=== PATIENT | male | born 1960 | race Caucasian/White ===

== ENCOUNTER 2016-06-09 08:50 | Emergency (ER) | payer OTHER | END 2016-06-09 09:07 | disposition home or self-care (01) | LOC: CED 08:50 | DX: R22.41 Localized swelling, mass and lump, right lower limb (principal); Z53.21 Procedure and treatment not carried out due to patient leaving prior to being seen by health care provider ==

== ENCOUNTER 2016-06-09 09:25 | Emergency (ER) | payer OTHER ==
--- NOTE | 2016-06-09 10:06 | EDPHY ---
H & P Smoking Status: Never smoked Time Seen by Provider: 06/09/16 09:48 HPI/ROS: CHIEF COMPLAINT: Right upper thigh and groin pain HISTORY OF PRESENT ILLNESS: 56-year-old male presents to the emergency department by private vehicle with right upper thigh and groin pain since Friday evening, 2 days ago. The patient denies any known trauma or injury. He states on Friday evening he developed what he described as a cramp in the right upper thigh area. He denies any known trauma or injury. He is very active and denies any kind of injury. He has not noticed this with activity. He did try taking some ibuprofen with some relief. He was concerned about possible blood clot. Feels that the pain that started in his right proximal medial thigh is now radiating down into his right mid thigh. He denies rash. Denies pleuritic chest pain. Denies shortness of breath. Denies calf pain or swelling. Denies recent travel. REVIEW OF SYSTEMS: Constitutional: No fever, no chills. Eyes: No double or blurry vision. ENT: No sore throat. Respiratory: No cough, no shortness of breath. Cardiac: No chest pain. Gastrointestinal: No abdominal pain, vomiting or diarrhea. Genitourinary: No dysuria. Musculoskeletal: No neck or back pain. Skin: No rashes. Neurological: No headache. (Shabnam Pearson) Past Medical/Surgical History: Negative (Shabnam Pearson) Social History: Single (Shabnam Pearson) Physical Exam: General Appearance: Alert, no distress. 96% on room air Eyes: Pupils equal and round. Extraocular motions are all intact. ENT: Mouth: Mucous membranes moist. Respiratory: No wheezing, rhonchi, or rales, lungs are clear to auscultation. Cardiovascular: Regular rate and rhythm. Gastrointestinal: Abdomen is soft and nontender, no masses, no rebound or guarding, bowel sounds normal. Neurological: Alert and oriented x 3, cranial nerves II through XII grossly intact Skin: Warm and dry, no rashes. Musculoskeletal: Nontender to palpate along the cervical, thoracic or lumbar spine. Neck is supple. Extremities: Full range of motion and no peripheral edema. Tender with palpation to the right proximal medial aspect of the right upper thigh. No palpable bony tenderness. No inguinal lymphadenopathy palpated. Full range of motion of the right lower extremity without any pain or difficulty. Flexion and abduction and abduction all against resistance without any difficulty or pain. Psychiatric: Patient is oriented X 3, there is no agitation. (Shabnam Pearson) Constitutional: Initial Vital Signs Temperature (C) 36.7 C 06/09/16 09:35 Heart Rate 80 06/09/16 09:35 Respiratory Rate 16 06/09/16 09:35 Blood Pressure 160/89 H 06/09/16 09:35 O2 Sat (%) 96 06/09/16 09:35 O2 Delivery Mode Room Air Allergies/Adverse Reactions: No Known Allergies Allergy (Verified 12/01/15 19:44) Home Medications: Medication Instructions Recorded Atorvastatin Calcium 10/11/14 Aspirin 06/09/16 Medical Decision Making - Diagnostics Imaging: Ultrasound the right lower extremity reveals no evidence of DVT. This is reported to me by Dr. Flaquito العلي. (Shabnam Pearson) ED Course/Re-evaluation: 56-year-old male presents with right groin and proximal thigh pain. There is no palpable lymphadenopathy. The patient is concerned about possible DVT. Ultrasound has been ordered and is pending. Ultrasound the right lower extremity reveals no evidence of DVT. Patient was reassured. I do not see any evidence of necrotizing fasciitis. He has no rash or any redness or warmth to suggest cellulitis. I encouraged close follow-up with primary care provider. I also encouraged him to return to the emergency department if he developed chest pain, difficulty breathing, swelling in his thigh or if he felt worse in any way. Patient was comfortable with this plan. (Shabnam Pearson) I did not see this patient while he was in the emergency department. However his care was discussed with the PA while the patient was in the department. I agree with treatment plan and management (Dejan Kirby) Differential Diagnosis: Including but not limited to DVT, musculoskeletal pain, necrotizing fasciitis, cellulitis, lymphadenopathy (Shabnam Pearson) Departure - Departure Disposition: Home, Routine, Self-Care Clinical Impression: Right thigh pain Condition: Good Instructions: Musculoskeletal Pain (ED) Additional Instructions: Ibuprofen 600mg every 8 hours for pain as directed. Return if you developed swelling in your groin, increasing pain, or if you feel worse in any way. Referrals: Nate Holley MD [Primary Care Provider] - 2-3 days, call for appt.
[2016-06-09 12:00] VITALS: BP 138/78; PULSE 70; RESP 14; TEMP 98.4; O2SAT 94
== END 2016-06-09 11:58 | disposition home or self-care (01) ==
DX: M79.651 Pain in right thigh (principal); Z79.82 Long term (current) use of aspirin

== ENCOUNTER → 2016-06-13 | Outpatient (CLI) | payer OTHER | LOC: CIMAGING 08:30 | PROVIDERS: ATTEND Internal Medicine Interventional Cardiology | DX: M54.2 Cervicalgia (principal); I25.10 Atherosclerotic heart disease of native coronary artery without angina pectoris | CPT/HCPCS: 93880-PO ==

== ENCOUNTER → 2016-08-22 | Outpatient (CLI) | payer OTHER ==
[~2016-08-22] MED LIST: IOPAMIDOL (ISOVUE-300) 100 ML BTL IV ONE
== END ==
LOC: CIMAGING 08:16
PROVIDERS: ATTEND Physician Assistant
DX: R10.31 Right lower quadrant pain (principal); N28.1 Cyst of kidney, acquired
CPT/HCPCS: 74177-PO; Q9967

== ENCOUNTER 2016-10-26 09:38 | Emergency (ER) | payer OTHER ==
[2016-10-26 10:04] VITALS: O2SAT 96
[2016-10-26] MEDS ORDERED: TDAP ADULT 0.5 ML INJ (BOOSTRIX) IM ONE (10:08)
[2016-10-26] MEDS ORDERED: LET GEL TOPICAL 1 EA SYR TP ONE (10:41)
--- NOTE | 2016-10-26 11:46 | EDPHY ---
H & P Time Seen by Provider: 10/26/16 10:35 HPI/ROS: This patient sustained a laceration to his right thumb from a chainsaw shortly prior to arrival. He was working with his father with swelling that she has sella the patient thought that the so but it is up spinning but still slightly motion when it bumped up against his thumb. He reports minimal discomfort and mild bleeding that stopped with direct pressure prior to arrival. He denies any other injuries or complaints. ROS: Neuro: No numbness or tingling. Musculoskeletal: No difficulty moving the affected thumb. No other injuries. 5 point ROS is otherwise negative Past Medical/Surgical History: Dyslipidemia. Otherwise healthy Last tetanus was more than 7 years ago he believes. Smoking Status: Never smoked Physical Exam: Physical Exam Vital signs are normal. General: No acute distress Eyes: Pupils equal and react to light. Extraocular motions are intact. Lungs: No respiratory distress. Cardiac: Brisk capillary refill is intact throughout. Skin: No rash or pallor. The patient has a 1 cm flap-type laceration with no active bleeding the dorsum of his right thumb. Subcutaneous tissues evident but no deeper structures are injured. He is neurovascularly intact beyond the wound. No bony tenderness. No foreign bodies. The base of the wound is easily visualized. Neuro: Alert and oriented x3 with no sensorimotor deficits in the affected extremity. Constitutional: Initial Vital Signs Temperature (C) 37.0 C 10/26/16 10:01 Heart Rate 96 10/26/16 10:01 Respiratory Rate 18 10/26/16 10:01 Blood Pressure 125/79 H 10/26/16 10:01 O2 Sat (%) 96 10/26/16 10:01 O2 Delivery Mode Room Air Allergies/Adverse Reactions: No Known Allergies Allergy (Verified 10/26/16 10:01) Home Medications: Medication Instructions Recorded Atorvastatin Calcium 10/11/14 Aspirin 06/09/16 MDM/Departure - MDM Procedures: The wound is 1 cm in length. The wound was copiously irrigated with saline. The wound was explored for foreign bodies and none were found. The wound was prepped and draped in the normal sterile fashion. The wound was anesthetized using let solution The edges were reapproximated using 3 interrupted sutures with 4 0 Ethilon with good hemostasis and cosmesis. The patient tolerated the procedure well. There were no complications. A dressing is placed. I counseled patient regarding wound care Medications Given: Discontinued Medications Diphtheria/Tetanus/Acell Pertussis (Boostrix) 0.5 ml IM .ONCE ONE Stop: 10/26/16 10:09 Last Admin: 10/26/16 10:20 Dose: 0.5 ml Tetracaine/Epinephrine/Lidocaine (Let Gel Topical) 1 ea TP EDNOW ONE Stop: 10/26/16 10:42 Last Admin: 10/26/16 10:52 Dose: 1 ea ED Course/Re-evaluation: Tennis immunizations given. Discussion: Minor thumb laceration without evidence of tendon injury, neurovascular compromise or bony injury. - Depart Disposition: Home, Routine, Self-Care Clinical Impression: Laceration of thumb Qualifiers: Encounter type: initial encounter Damage to nail status: without damage Foreign body presence: without foreign body Laterality: right Qualified Code(s) : S61.011A - Laceration without foreign body of right thumb without damage to nail, initial encounter Condition: Good Instructions: Finger Laceration (ED) Additional Instructions: Diagnosis: Thumb laceration Plan: Keep the wound clean and dry for the next 2 days, then clean daily with warm soapy water Return for suture removal in 10-12 days Return sooner if he develops redness, discharge or other concerns for infection. Referrals: Nate Holley MD [Primary Care Provider] - As per Instructions
[2016-10-26 12:01] VITALS: BP 112/79; PULSE 54; RESP 16; TEMP 98.7
== END 2016-10-26 12:01 | disposition home or self-care (01) ==
LOC: CED 09:38
PROC: 0HQFXZZ Repair Right Hand Skin, External Approach (ICD-10-PCS; principal; 2016-10-26)
PROC: 3E0234Z Introduction of Serum, Toxoid and Vaccine into Muscle, Percutaneous Approach (ICD-10-PCS; principal; 2016-10-26)
DX: S61.011A Laceration without foreign body of right thumb without damage to nail, initial encounter (principal); Z23 Encounter for immunization; Z79.82 Long term (current) use of aspirin; W29.3XXA Contact with powered garden and outdoor hand tools and machinery, initial encounter; Y92.69 Other specified industrial and construction area as the place of occurrence of the external cause

== ENCOUNTER → 2016-12-24 | Outpatient (CLI) | payer OTHER | LOC: CIMAGING 08:43 | PROVIDERS: ATTEND Internal Medicine | DX: N50.82 Scrotal pain (principal) | CPT/HCPCS: 76870-PO ==

== ENCOUNTER → 2017-03-18 | Outpatient (CLI) | payer OTHER | LOC: FIMAGING 08:13 | PROVIDERS: ATTEND Physician Assistant Medical | DX: R13.10 Dysphagia, unspecified (principal); M50.30 Other cervical disc degeneration, unspecified cervical region ==

== ENCOUNTER 2017-06-10 18:25 | Emergency (ER) | payer OTHER ==
--- NOTE | 2017-06-10 18:36 | CPEKG ---
Heart Rate: 61 RR Interval: 984 P-R Interval: 172 QRSD Interval: 98 QT Interval: 428 QTC Interval: 431 P [place]: 58 QRS [place]: 78 T Wave [place]: 34 EKG Severity - NORMAL ECG - EKG Impression: SINUS RHYTHM Electronically Signed By: Malcolm Bingham 10-Jun-2017 19:15:42
[2017-06-10] MEDS ORDERED: ASPIRIN 81 MG CHEWABLE TAB PO ONE (19:07)
--- NOTE | 2017-06-10 19:10 | EDPHY ---
H & P Stated Complaint: Chest Pain Source: Patient Exam Limitations: No limitations - Personal History Tetanus Vaccine Date: WITHIN 10 YRS - Medical/Surgical History Hx Asthma: No Hx Chronic Respiratory Disease: No Hx Diabetes: No Hx Cardiac Disease: No Hx Renal Disease: No Hx Cirrhosis: No Hx Alcoholism: No Hx HIV/AIDS: No Hx Splenectomy or Spleen Trauma: No Other PMH: SURGICAL- ORTHO, HYPERLIPIDEMIA - Family History Significant Family History: No pertinent family hx - Social History Smoking Status: Never smoked Alcohol Use: Sober Drug Use: None Time Seen by Provider: 06/10/17 18:42 HPI/ROS: CHIEF COMPLAINT: Chest pain HISTORY OF PRESENT ILLNESS: 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 He states that he has chronic neck pain and at 1st attributed it to that but states that it seems to be radiating down into his mid chest. It is not worsened by exertion. He has not had any nausea vomiting or diaphoresis. No radiation into his arms or back. He does occasionally notice shortness of breath but it resolved after a few seconds. He thinks that it may be from anxiety. He has not had any recent illness. No lightheadedness or dizziness. No palpitations. He does have a history of GERD and thought that that may be the cause but was unsure. His pain is not made worse by palpation or movement. He is currently symptom free. REVIEW OF SYSTEMS: Constitutional: denies: chills, fever, recent illness, recent injury EENTM: denies: blurred vision, double vision, nose congestion Respiratory: See HPI denies: cough Cardiac: See HPI denies: irregular heart rate, lightheadedness, palpitations Gastrointestinal/Abdominal: denies: abdominal pain, diarrhea, nausea, vomiting, blood streaked stools Genitourinary: denies: dysuria, frequency, hematuria, pain Musculoskeletal: denies: joint pain, muscle pain Skin: denies: lesions, rash, jaundice, bruising Neurological: denies: headache, numbness, paresthesia, tingling, dizziness, weakness Hematologic/Lymphatic: denies: blood clots, easy bleeding, easy bruising Immunologic/allergic: denies: HIV/AIDS, transplant EXAM: GENERAL: Well-appearing, well-nourished and in no acute distress. HEAD: Atraumatic, normocephalic. EYES: Pupils equal round and reactive to light, extraocular movements intact, sclera anicteric, conjunctiva are normal. ENT: TMs normal, nares patent, oropharynx clear without exudates. Moist mucous membranes. NECK: Normal range of motion, supple without lymphadenopathy or JVD. LUNGS: Breath sounds clear to auscultation bilaterally and equal. No wheezes rales or rhonchi. HEART: Regular rate and rhythm without murmurs, rubs or gallops. ABDOMEN: Soft, nontender, normoactive bowel sounds. No guarding, no rebound. No masses appreciated. BACK: No CVA tenderness, no spinal tenderness, step-offs or deformities EXTREMITIES: Normal range of motion, no pitting or edema. No clubbing or cyanosis. NEUROLOGICAL: Cranial nerves II through XII grossly intact. Normal speech, normal gait. 5/5 strength, normal movement in all extremities, normal sensation PSYCH: Normal mood, normal affect. SKIN: Warm, dry, normal turgor, no visible rashes or lesions. (Malcolm Bingham) Constitutional: Initial Vital Signs Temperature (C) 36.9 C 06/10/17 18:41 Heart Rate 67 06/10/17 18:41 Respiratory Rate 16 06/10/17 18:41 Blood Pressure 139/79 H 06/10/17 18:41 O2 Sat (%) 97 06/10/17 18:41 O2 Delivery Mode Room Air Allergies/Adverse Reactions: No Known Allergies Allergy (Verified 10/26/16 10:01) Home Medications: Medication Instructions Recorded Atorvastatin Calcium 10/11/14 Aspirin 06/09/16 Medical Decision Making - Diagnostics Imaging: Discussed imaging studies w/ housecalls nurse Radiologist - Diagnostics EKG Interpretation: An EKG obtained and was read and documented in trace view. Please see trace view for full reading and report. Sinus rhythm, no acute ischemic changes ( Malcolm Bingham) ED Course/Re-evaluation: Patient seen by me at 9:40 p.m.. He has no symptoms. We both agree that we will repeat a troponin at 10:30 p.m.. Repeat troponin has been drawn and sent. Patient and I reviewed his labs together and I had noted that the patient had an elevated lipase. The patient and Dr. Bingham had discussed this and the patient had had a CT of his abdomen without evidence for pancreatic cancer or tumor. Patient and I discussed follow -up on this with Dr. Holley (Dejan Kirby) 8:45 p.m. we discussed the lab and imaging results. The patient is reassured. We discussed options. We elected to do a repeat troponin at 10:30 a.m.. I will transfer care to Dr. Dejan Kirby. (Malcolm Bingham) Differential Diagnosis: Partial list of the Differential diagnosis considered include but were not limited to; acute coronary disease, GERD, PE, angina and although unlikely based on the history and physical exam, I also considered anxiety, pneumothorax , pneumonia. (Malcolm Bingham) - Data Points Laboratory Results: Laboratory Results 06/10/17 18:37 06/10/17 18:37 Medications Given: Discontinued Medications Aspirin (Aspirin) 324 mg PO EDNOW ONE Stop: 06/10/17 19:08 Last Admin: 06/10/17 19:26 Dose: 324 mg Departure - Departure Disposition: Home, Routine, Self-Care Clinical Impression: Chest pain Qualifiers: Chest pain type: unspecified Qualified Code(s): R07.9 - Chest pain, unspecified Condition: Fair Instructions: Chest Pain (ED) Additional Instructions: Easy activity the next few days. Return for worsening chest discomfort or trouble breathing. Follow up with Dr. Holley this week for further evaluation of chest discomfort Your lipase is somewhat elevated tonight. Significance of this is not clear. Your abdominal CT looking at the pancreas is normal. Please have Dr. Holley repeat the lipase to make sure it is coming back to normal. Referrals: Nate Holley MD [Primary Care Provider] - 5-7 days, call for appt.
[2017-06-10 19:16] LABS: PLATELET COUNT 195 10^3/uL (150-400)
[2017-06-10 19:26] LABS: INR 1.09 (0.83-1.16); PROTIME(PATIENT) 14.3 SEC (12.0-15.0)
[2017-06-10] MEDS ORDERED: IOPAMIDOL (ISOVUE-300) 100 ML BTL ONE (19:51)
[2017-06-10 19:52] VITALS: RESP 18
[2017-06-10 22:23] VITALS: O2SAT 96
[2017-06-10 23:09] VITALS: BP 120/75; PULSE 60; TEMP 98.1
== END 2017-06-10 23:09 | disposition home or self-care (01) ==
DX: R07.9 Chest pain, unspecified (principal)
CPT/HCPCS: Q9967

== ENCOUNTER → 2018-10-02 | Outpatient (CLI) | payer OTHER | LOC: FIMAGING 15:27 ==